=== PATIENT | male | born 1985 | race Caucasian/White ===

== ENCOUNTER 2020-09-06 11:15 | Outpatient (NON) | payer OTHER, SELFPAY ==
[2020-09-06 22:15] LABS: SARS-CoV-2 RNA PCR Positive
== END 2020-09-06 11:16 ==
PROVIDERS: Physician Assistant; PCP Family Medicine; Visit Provider Family Medicine
DX: U07.1 COVID-19 (principal)
CPT/HCPCS: 87635; C9803; U0003

== ENCOUNTER → 2021-03-07 17:50 | Outpatient (CLI) | payer OTHER, SELFPAY ==
--- NOTE | ~2021-03-07 | XR_ITS ---
EXAMINATION: XR chest 2V 03/07/2021 18:21 INDICATION: Cough PROCEDURE: 2 view chest COMPARISON: No prior studies for comparison. FINDINGS: The lungs are clear. The cardiomediastinal silhouette is within normal limits. There are no pleural effusions. There is no pneumothorax suspected. IMPRESSION: 1: NO ACUTE CARDIOPULMONARY DISEASE. Reviewed, dictated and finalized at location A.
== END ==
PROVIDERS: PCP Family Medicine; Visit Provider Physician Assistant
DX: R05 Cough (principal)
CPT/HCPCS: 71046

== ENCOUNTER 2021-10-20 13:26 | Emergency (ER) | payer OTHER, SELFPAY ==
[2021-10-20 13:45] VITALS: BP 134/87; PULSE 84; RESP 16; TEMP 37.2; O2SAT 99
--- NOTE | 2021-10-20 14:42 | PC.NURSE ---
pt decides to leave and have finger treated at urgent care
== END 2021-10-21 02:23 | disposition left against medical advice (07) ==
PROVIDERS: PCP Family Medicine
DX: Z53.21 Procedure and treatment not carried out due to patient leaving prior to being seen by health care provider (principal)
CPT/HCPCS: 99199

== ENCOUNTER 2021-10-20 14:54 | Emergency (ER) | payer OTHER, SELFPAY ==
[2021-10-20 15:09] VITALS: BP 145/94; PULSE 81; RESP 18; TEMP 36.2; O2SAT 99
--- NOTE | 2021-10-20 15:14 | ED.WOUNDLAC ---
HPI - Wound/Laceration General Chief Complaint: Wound/Laceration Stated Complaint: Cut Middle Finger Rt hand Source: patient and RN notes reviewed Limitations: no limitations History of Present Illness HPI narrative: The patient, previously mostly healthy, presents with wound check. Patient states prior to arrival he sustained a small avulsion/superficial laceration of his right long finger while working on a sink. Symptoms are mild, better with compression, and he wants to be checked for tetanus or need for sutures. Related Data Allergies Allergy/AdvReac Type Severity Reaction Status Date / Time No Known Allergies Allergy Verified 10/20/21 15:02 Review of Systems Review of Systems: General/Constitutional: No weight loss,fever Eyes: N0: Redness,discharge Ears/Nose/Throat: No: Epistaxis,ear discharge Respiratory: Denies: Hemoptysis Gastrointestinal: No Vomiting, Bleeding-rectal Skin: No Lumps, eruption Neurologic: No Focal Weakness,Sz Hematologic: Denies: Petechiae/Purpura Psychiatric: No: Suicida ideationl All Other Systems: Reviewed and Negative [facility] Past Medical History Medical History (Updated 10/20/21 @ 15:29 by Cody Billingsley MD) Family history of ulcerative colitis Hyperlipidemia Obesity Family History Family History Sibling Family history of ulcerative colitis Social History Social History (Updated 09/19/21 @ 13:10 by Ángela Webb) Smoking status: Never smoker Second hand tobacco smoke exposure: No Alcohol intake: current Substance use: never Substance use type: does not use Gender identity (if verbalized by the patient): Male Sexual Orientation (if Verbalized by the Patient): Straight or Heterosexual Comments At time of signature, agree with nursing past medical, surgical, social and family history. There is no relevant family history pertinent to the presenting complaint Exam Narrative: General Appearance: Well appearing, Conjunctiva clear Ears: External ear normal, Auditory canal normal Nose: Normal nose, Nares clear Mouth/Throat: Normal appearing, Normal lips,: Supple Respiratory: Airway patent, No respiratory distress MS-finger: Normal strength (mostly intact, unlimited flexion/extension ), Tenderness and evolution, with mild decreased ROM), no swelling, Other (no anterior drawer, no collateral laxity,) Skin: 1 cm long, very narrow skin avulsion; warm, Dry, Normal color Neurological: A&O x3, Normal affect Course Vital Signs Vital signs: Vital Signs Temperature 97.1 F L 10/20/21 15:09 Pulse Rate 81 10/20/21 15:09 Respiratory Rate 18 10/20/21 15:09 Blood Pressure 145/94 H 10/20/21 15:09 Pulse Oximetry 99 10/20/21 15:09 Temperature 97.1 F L 10/20/21 15:09 Pulse Rate 81 10/20/21 15:09 Respiratory Rate 18 10/20/21 15:09 Blood Pressure 145/94 H 10/20/21 15:09 Pulse Oximetry 99 10/20/21 15:09 Discharge Plan Discharge Clinical Impression: Encounter for post-traumatic wound check, Hx of avulsion Patient Disposition: Home, Self-Care Condition: Stable Instructions: Skin Avulsion (ED) Prescriptions: New mupirocin 2 % ointment 1 applic TOPICAL TID Qty: 30 RF: 0 albuterol sulfate [Ventolin HFA] 90 mcg/actuation HFA aerosol inhaler 2 puff INHALATION QID PRN (Reason: shortness of breath or wheezing) Qty: 8.5 RF: 1 Follow-up/Referrals: Naif Bangura MD [Primary Care Provider] -
[2021-10-20] MEDS: TETANUS,DIPHTHERIA,AC PERTUSSIS ADULT (0.5 ML) BOOSTRIX IM (15:23)
== END 2021-10-20 15:32 | disposition home or self-care (01) ==
PROVIDERS: Emergency Provider Emergency Medicine; PCP Family Medicine
DX: S61.212A Laceration without foreign body of right middle finger without damage to nail, initial encounter (principal); E78.5 Hyperlipidemia, unspecified; Z23 Encounter for immunization; W45.8XXA Other foreign body or object entering through skin, initial encounter
CPT/HCPCS: 90471; 90715; 99212; G0463

== ENCOUNTER 2023-03-13 16:07 | Outpatient (CLI) | payer OTHER, SELFPAY ==
--- NOTE | ~2023-03-13 | XR_ITS ---
EXAM: XR lumbar spine 2-3V DATE: 03/13/2023 16:27 HISTORY: M54.50 - Low back pain, unspecified, HEARD A POP TODAY . COMPARISON: None available. FINDINGS: 5 nonrib-bearing lumbar-type vertebral bodies. Pedicles intact. Normal vertebral body alig nment. Vertebral body heights preserved. Mild L5-S1 disc space narrowing. Mild L5-S1 facet sclerosis and hypertrophy. No fracture or dislocation. Incidental note of moderate degenerative disc change at T11-12. IMPRESSION: Mild degenerative disc disease and facet arthropathy at L5-S1. Reviewed, dictated and finalized at location K.
== END 2023-03-13 16:08 | disposition home or self-care (01) ==
PROVIDERS: PCP Family Medicine; Visit Provider Physician Assistant
DX: M51.36 Other intervertebral disc degeneration, lumbar region (principal); M47.817 Spondylosis without myelopathy or radiculopathy, lumbosacral region; G89.29 Other chronic pain
CPT/HCPCS: 72100

== ENCOUNTER 2023-07-11 16:50 | Outpatient (CLI) | payer OTHER, SELFPAY ==
--- NOTE | ~2023-07-11 | XR_ITS ---
EXAMINATION: XR chest 2V DATE: 07/11/2023 17:02 INDICATION: Shortness of breath and cough TECHNIQUE: PA and lateral views of the chest were obtained. COMPARISON: Chest radiograph dated 03/07/2021 FINDINGS: The lungs are clear with no focal airspace opacities, pulmonary edema, pleural effusion or pneumothor ax. The cardiomediastinal silhouette is normal. Mild thoracic spondylosis. IMPRESSION: 1. No acute cardiopulmonary disease. Reviewed, dictated and finalized at location A.
== END 2023-07-11 16:51 | disposition home or self-care (01) ==
LOC: ANHIMG 16:52
PROVIDERS: PCP Family Medicine; Visit Provider Family Medicine
DX: R05.9 Cough, unspecified (principal)
CPT/HCPCS: 71046

== ENCOUNTER 2023-07-16 15:11 | Emergency (ER) | payer OTHER, SELFPAY ==
[2023-07-16 15:23] VITALS: BP 125/89; PULSE 86; RESP 16; TEMP 36.4; O2SAT 100
--- NOTE | 2023-07-16 15:56 | ED.EAR ---
HPI - Ear Problem General Chief complaint: Ear Stated complaint: rt ear pain Source: patient and RN notes reviewed History of Present Illness HPI Narrative: 37 yo M presents to urgent care with complaints of worsening right sided ear pain. Pt states one week ago, he was dx with FLU B and conjuntivitis. , he had a CXR b/c of his non-improved cough, which was negative. Pt states his eye has gotten better with the drops. Saturday he was seen in urgent care for right sided ear pain and sore throat where he was dx with strep throat. Pt has been taking amoxicillin but states the ear pain is getting worse and he his having drainage from it. Pt reports intermittent dizziness now as well. Denies any fevers, chills, SOB, chest pain today, vomiting, diarrhea, or tinnitus. Related Data Home Medications Medication Instructions Recorded Confirmed amoxicillin 500 mg capsule 500 mg PO BID 07/16/23 07/16/23 benzonatate 200 mg capsule 200 mg PO PRN PRN Cough 07/16/23 07/16/23 Allergies Allergy/AdvReac Type Severity Reaction Status Date / Time No Known Allergies Allergy Verified 07/16/23 15:19 Review of Systems Review of Systems: Pertinent positives and pertinent negatives per HPI. [facility] Past Medical History Medical History Family history of ulcerative colitis Hyperlipidemia Obesity Family History Family History Sibling Family history of ulcerative colitis Social History Social History Smoking status: Never smoker Second hand tobacco smoke exposure: No Alcohol intake: current Substance use: never Substance use type: does not use Living arrangements: with family Occupation/Education: occupation Gender identity (if verbalized by the patient): Male Sexual Orientation (if Verbalized by the Patient): Straight or Heterosexual Comments At the time of my signature, I reviewed and agree with the nursing past medical, surgical, social, and family history. There is no relevant family history pertinent to the patient complaint. Exam Narrative: GENERAL: This is a well-nourished, well-developed patient, in no apparent distress. HEAD: normocephalic, atraumatic. EYES: Sclera clear/white. Vision is grossly intact. EARS: Right ear canal is edematous and erythemic. Yellow /brown drainage noted to be coming from the right ear. Unable to visualize right TM. Left outer ear, canal, and inner ear appear healthy. NOSE: External nose normal with no obvious nasal discharge, nares without redness, no rhinorrhea. THROAT: Mucous membranes moist, posterior pharynx clear. NECK: Neck supple, non-tender without lymphadenopathy, masses or thyromegaly. CARDIOVASCULAR: Regular rate and rhythm without murmurs, gallops, or rubs. RESPIRATORY: Clear to auscultation. Breath sounds equal bilaterally. No wheezes, rales, or rhonchi. GASTROINTESTINAL: Abdomen soft, non-tender, nondistended. Bowel sounds are active. No hepato-splenomegaly, or palpable masses. No guarding. SKIN: warm, intact with no suspicious lesions or rash, good texture and turgor. NEURO: awake, alert, and oriented to person, place and time. There were no obvious focal neurologic abnormalities. Course Course Level of Care: Express Care Visit Vital Signs Vital signs: Vital Signs Temperature 97.5 F L 07/16/23 15:23 Pulse Rate 86 07/16/23 15:23 Respiratory Rate 16 07/16/23 15:23 Blood Pressure 125/89 07/16/23 15:23 Pulse Oximetry 100 07/16/23 15:23 Oxygen Delivery Room Air 07/16/23 15:23 Temperature 97.5 F L 07/16/23 15:23 Pulse Rate 86 07/16/23 15:23 Respiratory Rate 16 07/16/23 15:23 Blood Pressure 125/89 07/16/23 15:23 Pulse Oximetry 100 07/16/23 15:23 Oxygen Delivery Room Air 07/16/23 15:23 reviewed Medical Decision Making EMIR Kc
== END 2023-07-16 16:12 | disposition home or self-care (01) ==
PROVIDERS: Emergency Provider Nurse Practitioner Family; PCP Family Medicine
DX: H60.91 Unspecified otitis externa, right ear (principal); E78.5 Hyperlipidemia, unspecified; E66.9 Obesity, unspecified; Z68.36 Body mass index [BMI] 36.0-36.9, adult
CPT/HCPCS: 99213; G0463

== ENCOUNTER 2023-11-21 11:43 | Emergency (ER) | payer OTHER, SELFPAY ==
[2023-11-21 11:50] VITALS: BP 124/80; PULSE 75; RESP 18; TEMP 36.1; O2SAT 98
--- NOTE | 2023-11-21 11:51 | ED.URI ---
HPI - URI/Sore Throat General Chief Complaint: Upper Respiratory Infection Stated Complaint: Sore Throat, Exposure To Strep,Congestion, Earache Time Seen by Provider: 11/21/23 12:05 Source: patient and RN notes reviewed Mode of arrival: ambulatory Limitations: no limitations History of Present Illness HPI Narrative: 38-year-old male presents with concern for sore throat. He reports symptoms started today with ear pain, sore throat. Reports his tested positive for strep throat today. He reports 4/10 pain level in his throat. MD elicited complaint: sore throat Related Data Allergies Allergy/AdvReac Type Severity Reaction Status Date / Time No Known Allergies Allergy Verified 11/21/23 11:59 Review of Systems Review of Systems: CONSTITUTIONAL: Denies malaise, chills, sweats, or fever. EYES: Denies visual changes, redness, or discharge. ENT: Denies rhinorrhea, congestion, sinus pain. Reports otalgia and sore throat. CARDIOVASCULAR: Denies chest pain, palpitations, or edema. RESPIRATORY: Denies cough. Denies dyspnea. GASTROINTESTINAL: Denies abdominal pain, nausea, vomiting, diarrhea SKIN: Denies rash or itching. MUSCULOSKELETAL: Denies myalgia. NEUROLOGIC: Reports headache. All systems reviewed & are unremarkable except as noted in HPI and below PMFSH Past Medical History Medical History Family history of ulcerative colitis Hyperlipidemia Obesity Family History Family History Sibling Family history of ulcerative colitis Social History Social History Smoking status: Never smoker Second hand tobacco smoke exposure: No Alcohol intake: current Substance use: never Substance use type: does not use Living arrangements: with family Occupation/Education: occupation Gender identity (if verbalized by the patient): Male Sexual Orientation (if Verbalized by the Patient): Straight or Heterosexual Comments At time of signature, agree with nursing past medical, surgical, social and family history. There is no relevant family history pertinent to the presenting complaint Exam Narrative: GENERAL: Well-appearing, well-nourished, and in no acute distress. HEAD: Normocephalic EYES: PERRLA, conjunctivae clear ENT: Nares clear Mucous membranes moist. TM pearly lynn with dull light reflex bilaterally; no tragal tenderness. Oropharynx erythematous without lesions. Tonsils not enlarged and without exudate, no drooling, no hoarseness, no trismus, uvula midline. NECK: Supple. No lymphadenopathy CHEST: Clear to auscultation, breath sounds equal. No wheezing, rhonchi, rales, or stridor. No respiratory distress, speaks in full sentences. HEART: Regular rate and rhythm. No murmur heard. SKIN: Warm, dry, no rash. NEURO: Alert and oriented x3. PSYCH: Normal mood and affect Course Course Emergency Course: Patient is aware of diagnosis, understands and agrees to treatment plan. Anticipatory guidance given. Patient agrees to follow-up as directed and is aware of reasons to seek care at the emergency department. Portions of this record may have been created with voice recognition software Level of Care: Express Care Visit Vital Signs Vital signs: Reviewed. MDM - URI/Sore Throat MDM Narrative Medical decision making narrative: Differential diagnosis considered: Bell virus, strep pharyngitis, allergic rhinitis, upper respiratory tract infection, sinusitis, rhinosinusitis, nasopharyngitis. viral pharyngitis, otitis media, otitis externa, pneumonia, bronchitis, viral cough syndrome, viral syndrome, and influenza. Exam findings show no acute concerns or changes; patient is non-toxic appearing and is in no distress. Patient is appropriate for outpatient treatment and follow-up. Lab Data Attestation: I reviewed the patient's lab results.
== END 2023-11-21 12:26 | disposition home or self-care (01) ==
PROVIDERS: Emergency Provider Nurse Practitioner; PCP Family Medicine
DX: J02.9 Acute pharyngitis, unspecified (principal); Z20.818 Contact with and (suspected) exposure to other bacterial communicable diseases; E78.5 Hyperlipidemia, unspecified; E66.9 Obesity, unspecified; Z68.38 Body mass index [BMI] 38.0-38.9, adult
CPT/HCPCS: 87081; 87880; 99213; G0463

== ENCOUNTER 2024-08-06 11:03 | Outpatient (CLI) | payer OTHER, SELFPAY ==
--- NOTE | ~2024-08-06 | US_ITS ---
EXAMINATION: US renal BI DATE: 08/06/2024 11:49 INDICATION: Disorder of kidney and ureter. Right renal lesion on outside CT. TECHNIQUE: Multiple ultrasound grayscale images of the kidneys were obtained. COMPARISON: None. Reported outside imaging has not been submitted for comparison. FINDINGS: The right kidney measures 12.2 x 6.5 x 6.5 cm. The left kidney measures 12.2 x 6.6 x 6.7 cm. The kidn eys demonstrate normal echogenicity. 1.2 cm exophytic cyst at the inferior right kidney. There is no hydronephrosis in either kidney. No stones identified. The bladder is normal with bilateral ureteral jets visualized on color Doppler. IMPRESSION: 1. 1.2 cm anechoic hepatic cyst at the right kidney. Otherwise normal kidneys with no hydronephrosis . Reviewed, dictated and finalized at location B. IMPRESSION: 1. 1.2 cm anechoic hepatic cyst at the right kidney. Otherwise normal kidneys with no hydronephrosis.
== END 2024-08-06 11:04 | disposition home or self-care (01) ==
PROVIDERS: PCP Family Medicine; Visit Provider Family Medicine
DX: N28.9 Disorder of kidney and ureter, unspecified (principal); N28.1 Cyst of kidney, acquired
CPT/HCPCS: 76775

== ENCOUNTER 2024-09-08 08:06 | Outpatient (CLI) | payer OTHER, SELFPAY ==
--- NOTE | ~2024-09-08 | US_ITS ---
US abdomen limited INDICATION: Right upper quadrant pain PROCEDURE: Realtime right upper abdominal ultrasound. COMPARISON: No prior studies for comparison. FINDINGS: The pancreas is normal without focal mass or pancreatic ductal dilation. Liver echotexture is increased, consistent with fatty infiltration. There is normal directional flow in the portal ve in. The gallbladder is normal without stones, gallbladder wall thickening or pericholecystic fluid. Comm on bile duct measures 4 mm. No sonographic De Los Santos's sign. IMPRESSION: 1: Fatty infiltration of the liver. Reviewed, dictated and finalized at location B.
== END 2024-09-08 08:07 | disposition home or self-care (01) ==
PROVIDERS: PCP Family Medicine; Visit Provider Physician Assistant Medical
DX: K76.0 Fatty (change of) liver, not elsewhere classified (principal)
CPT/HCPCS: 76705

== ENCOUNTER 2024-10-21 01:33 | Day surgery (SDC) | payer OTHER, SELFPAY ==
[2024-10-02 12:59] VITALS: BMI 40.0
[2024-10-21 08:29] VITALS: BP 125/82; PULSE 95; RESP 14; TEMP 36.1; O2SAT 98; BMI 39.5
[2024-10-21] MEDS: LACTATED RINGERS 1,000 ML 150 ML IV CONT (08:39)
--- NOTE | 2024-10-21 09:04 | PM.IMHP ---
H&P: HPI History of Present Illness Date/Time: 10/21/24 09:04 Chief Complaint: The patient has been complaining of frequent diarrhea, at least 75% of the times for the past year approximately. There is no associated rectal bleeding or unintentional weight loss but he reports having frequent, ill-defined diffuse abdominal discomfort not related to defecation. He is currently being studied for chronic diarrhea and laboratory tests are pending. In addition, patient describes epigastric discomfort that has been occurring for the past few months. He is here for EGD and colonoscopy. Review of Systems Review of Systems: All systems reviewed & are unremarkable except as noted in HPI and below PMFSH Past Medical History Medical History Family history of ulcerative colitis Hyperlipidemia Obesity Family History Family History Sibling Family history of ulcerative colitis Social History Social History Social History: Smoking status: Former smoker Tobacco type: smokeless tobacco Smokeless tobacco user: chewing tobacco Second hand tobacco smoke exposure: No Alcohol intake: former Drinks per week: 1 Substance use: never Substance use type: does not use Do You Feel Safe in your Home?: Yes Lack of Transportation: No Lack of Food: Never True Current Housing: I Have Housing Concerned About Future Housing: No Difficulty Paying Gas/Electric Bills: No Difficulty Paying for Meds: No Currently Unemployed: No Education: Don't Know Difficulty w/ Childcare or Family Care: No Living arrangements: with family Occupation/Education: occupation Additional occupation/education comments: [employer] Gender identity (if verbalized by the patient): Male Sexual Orientation (if Verbalized by the Patient): Straight or Heterosexual Spiritual care concerns: No Meds Home Medications and Allergies Home Medications Medication Instructions Recorded Confirmed Type No Home Medications 10/05/24 10/21/24 History Allergies Allergy/AdvReac Type Severity Reaction Status Date / Time No Known Allergies Allergy Verified 10/21/24 08:28 Vital Signs Vital Signs - 24 hr 10/21/24 08:29 Temperature 97 F L Pulse Rate 95 Respiratory Rate 14 Blood Pressure 125/82 Pulse Oximetry 98 Oxygen Delivery Room Air Exam Const: General: cooperative and healthy appearing Resp: Effort & Inspection: normal respiratory effort and able to speak in complete sentences Auscultation: clear to auscultation bilaterally Cardio: Rate: regular rate Rhythm: regular rhythm GI: Inspection: normal to inspection GI Palp: No No hepatosplenomegaly present Auscultation: normal bowel sounds Rectal Exam: deferred Skin: General skin exam: normal color Psych: Appearance: grossly normal Mental Status: mental status grossly normal Assessment and Plan Assessment and plan (1) Family history of ulcerative colitis: Code(s): Z83.79 - Family history of other diseases of the digestive system Status: Acute Assessment and Plan: The patient has a family history of ulcerative colitis in both his mother and sister. He had a colonoscopy approximately 5 years ago which did not show inflammatory bowel disease. However, we will perform a colonoscopy and will take biopsies to rule out microscopic colitis. In addition, during EGD will obtain duodenal biopsies to rule out celiac disease. (2) Chronic diarrhea: Code(s): K52.9 - Noninfective gastroenteritis and colitis, unspecified Status: Acute (3) Right upper quadrant abdominal pain: Code(s): R10.11 - Right upper quadrant pain Status: Acute
--- NOTE | 2024-10-21 09:06 | WPDANESEPPF ---
Anes - Initial Pre Proc Eval Procedure: Operation Date: 10/21/24 09:30 Proposed Procedures p Esophagogastroduodenoscopy & Colonoscopy - Judah Shore MD Date/Time: 10/21/24 09:06 Surgeon: Judah Shore MD Pre Op Diagnosis: Colitis/ RUQP & RLQP Patient Data Age: 39 Gender: M Height: 1.83 m Weight: 132.3 kg Last Vital Signs Temp 36.1 C L 10/21/24 08:29 Pulse 95 10/21/24 08:29 Resp 14 10/21/24 08:29 BP 125/82 10/21/24 08:29 Pulse Ox 98 10/21/24 08:29 O2 Del Method Room Air 10/21/24 08:29 Allergies Allergy/AdvReac Type Severity Reaction Status Date / Time No Known Allergies Allergy Verified 10/21/24 08:28 Home Medications Medication Instructions Recorded Confirmed Type No Home Medications 10/05/24 10/21/24 History Patient hx anesthesia problems: none Family hx anesthesia problems: none Results Review: All pre-operative results and documents have been reviewed as part of the pre-operative evaluation. [facility] Past Medical History Medical History Family history of ulcerative colitis Hyperlipidemia Obesity Family History Family History Sibling Family history of ulcerative colitis Social History Social History Social History: Smoking status: Former smoker Tobacco type: smokeless tobacco Smokeless tobacco user: chewing tobacco Second hand tobacco smoke exposure: No Alcohol intake: former Drinks per week: 1 Substance use: never Substance use type: does not use Do You Feel Safe in your Home?: Yes Lack of Transportation: No Lack of Food: Never True Current Housing: I Have Housing Concerned About Future Housing: No Difficulty Paying Gas/Electric Bills: No Difficulty Paying for Meds: No Currently Unemployed: No Education: Don't Know Difficulty w/ Childcare or Family Care: No Living arrangements: with family Occupation/Education: occupation Additional occupation/education comments: [employer] Gender identity (if verbalized by the patient): Male Sexual Orientation (if Verbalized by the Patient): Straight or Heterosexual Spiritual care concerns: No Anes - Eval Final PreProcedure Day of Procedure 10/21/24 09:06 Patient weight: morbidly obese Heart: regular rate and rhythm Lungs: clear to auscultation Airway: Mallampati scale class II Neurological: alert and oriented Last oral intake: >/= 8 hours ASA classification: III Emergent: no Anesthetic plan: proceed Anesthesia type and monitoring: general GIVS and standard monitoring Results Review: All pre-operative results and documents have been reviewed as part of the pre-operative evaluation. Informed Consent: The patient's anesthetic plan and its attendant risks and benefits were discussed with the patient/family/POA. Questions were solicited and answers provided to the satisfaction of the patient/family/POA.
--- NOTE | 2024-10-21 09:11 | SUR.OPER ---
EGD: [id number] COLON: [id number]
[2024-10-21] MEDS: SIMETHICONE ORAL SUSPENSION 20 MG/0.3 ML 30 ML BOTTLE 0.6 ML IRRIGATION (09:15)
[2024-10-21 09:58] VITALS: BP 101/70; PULSE 82; RESP 18; O2SAT 95
[2024-10-21 10:06] VITALS: BP 100/69; PULSE 75; RESP 18; O2SAT 96
[2024-10-21 10:16] VITALS: BP 120/68; PULSE 72; RESP 17; O2SAT 97
== END 2024-10-21 10:30 | disposition home or self-care (01) ==
PROVIDERS: PCP Family Medicine; Referring Provider Nurse Practitioner; Visit Provider Internal Medicine Gastroenterology
PROC: 0DJ08ZZ Inspection of Upper Intestinal Tract, Via Natural or Artificial Opening Endoscopic (ICD-10-PCS; CPT 43235; principal; 2024-10-21 09:30)
DX: K29.80 Duodenitis without bleeding (principal); K29.30 Chronic superficial gastritis without bleeding; K21.9 Gastro-esophageal reflux disease without esophagitis; E78.5 Hyperlipidemia, unspecified; F17.220 Nicotine dependence, chewing tobacco, uncomplicated; E66.01 Morbid (severe) obesity due to excess calories; Z68.39 Body mass index [BMI] 39.0-39.9, adult; Z83.79 Family history of other diseases of the digestive system
CPT/HCPCS: 43239; 45380; 88305; J2003; J2704; J7120

== ENCOUNTER 2024-11-12 17:21 | Emergency (ER) | payer OTHER, SELFPAY ==
[2024-11-12 17:30] VITALS: BP 128/68; PULSE 78; RESP 18; TEMP 36.3; O2SAT 96
--- NOTE | 2024-11-12 17:54 | ED_ITS ---
HPI - URI/Sore Throat General Chief Complaint: Upper Respiratory Infection Stated Complaint: sore throat Source: patient, RN notes reviewed and old records reviewed Mode of arrival: ambulatory Limitations: no limitations History of Present Illness HPI Narrative: patient presents with complaints of sore throat that has been present since yesterday. He is concerned because his and son have both recently tested positive for strep. He has taken ibuprofen for his symptoms with good relief. He reports slight headache. Denies any fever, chills, sweats. Denies any injury or trauma. Voices no other concerns or complaints Related Data Home Medications ?Medication ?Instructions ?Recorded ?Confirmed ?Last Taken ?Type No Home Medications 10/05/24 10/21/24 Unknown History Allergies Allergy/AdvReac Type Severity Reaction Status Date / Time No Known Allergies Allergy Verified 11/12/24 17:32 Review of Systems Review of Systems: All systems reviewed & are unremarkable except as noted in HPI and below Constitutional: Constitutional: Reports no additional constitutional complaints ENT: Reports system reviewed and no additional complaints, except as documented, Reports headache(s) and Reports sore throat Cardiovascular: Cardiovascular: Reports no additional cardiovascular complaints Respiratory: Respiratory: Reports no additional respiratory complaints Gastrointestinal: Gastrointestinal: Reports no additional gastrointestinal complaints [facility] Past Medical History Medical History Family history of ulcerative colitis Hyperlipidemia Obesity Family History Family History Sibling Family history of ulcerative colitis Social History Social History Social History: Smoking status: Former smoker Tobacco type: smokeless tobacco Smokeless tobacco user: chewing tobacco Second hand tobacco smoke exposure: No Alcohol intake: former Drinks per week: 1 Substance use: never Substance use type: does not use Do You Feel Safe in your Home?: Yes Lack of Transportation: No Lack of Food: Never True Current Housing: I Have Housing Concerned About Future Housing: No Difficulty Paying Gas/Electric Bills: No Difficulty Paying for Meds: No Currently Unemployed: No Education: Don't Know Difficulty w/ Childcare or Family Care: No Living arrangements: with family Occupation/Education: occupation Additional occupation/education comments: Agency [employer] Gender identity (if verbalized by the patient): Male Sexual Orientation (if Verbalized by the Patient): Straight or Heterosexual Spiritual care concerns: No Comments At the time of my signature, I reviewed and agree with the nursing past medical, surgical, social, and family history. There is no relevant family history pertinent to the patient complaint. Exam Const: General: cooperative, no acute distress, alert and awake Orientation/consciousness: oriented to person, oriented to place and oriented to time HENMT: Head: normal to inspection Ears: TM's normal bilaterally Mouth: Yes moist mucous membranes Throat: posterior oropharynx abnormal erythema Resp: Effort & Inspection: normal respiratory effort and able to speak in complete sentences Auscultation: clear to auscultation bilaterally, no crackles, no rales, no rhonchi and no wheezes Cardio: Palpation: normal PMI Rate: regular rate Rhythm: regular rhythm Heart sounds: S1 normal heart sound present and S2 normal heart sound present Neuro: General: oriented to person, oriented to place and oriented to time Cranial nerves: Yes CN's II-XII intact bilaterally Psych: Appearance: grossly normal Thought process: Normal thought process present Insight: Good insight present (Psych) Judgement: Good judgement present (Psych) Course Course Level of Care: Express Care Visit Vital Signs Vital signs: Vital Signs Temperature 97.3 F L 11/12/24 17:30 Pulse Rate 78 11/12/24 17:30 Respiratory Rate 18 11/12/24 17:30 Blood Pressure 128/68 11/12/24 17:30 Pulse Oximetry 96 11/12/24 17:30 Oxygen Delivery Room Air 11/12/24 17:30 Temperature 97.3 F L 11/12/24 17:30 Pulse Rate 78 11/12/24 17:30 Respiratory Rate 18 11/12/24 17:30 Blood Pressure 128/68 11/12/24 17:30 Pulse Oximetry 96 11/12/24 17:30 Oxygen Delivery Room Air 11/12/24 17:30 Reviewed MDM - URI/Sore Throat MDM Narrative Medical decision making narrative: negative COVID, negative flu, negative strep. Culture pending. Symptoms likely viral in origin. Treat symptomatically. Discharge instructions reviewed with patient, as well as provided in writing per nursing staff. The instructions also include specific and strict return/GO TO THE ER as well as f/u information. All questions have been answered, and the patient deny any further questions with discharge and discharge plan. Some parts of this dictation were generated by voice recognition software and may contain typographical and/or grammatical inaccuracies. Differential Diagnosis Differential diagnosis: Likely upper respiratory infection, otitis media, sinusitis, viral infection, bronchitis, influenza and pharyngitis Medical Records Attestation: I reviewed the patient's medical records. Lab Data Attestation: I reviewed the patient's lab results. Discharge Plan Discharge Clinical Impression: Viral illness Patient Disposition: Home, Self-Care Condition: Stable Instructions: Antibiotic Form, Cold Symptoms (ED) Additional Instructions: use [id number] medications to treat your symptoms. Follow package instructions. Follow-up with your primary care provider. Emergency department for new or worse symptoms Patient Language: Samoan Prescriptions: No Action No Home Medications Follow-up/Referrals: Naif Bangura MD [Primary Care Provider] - 2 Weeks Time of Disposition: 17:58
[2024-11-12 17:58] LABS: EDCOVIDSCREEN Negative (Negative); EDINFLUASCREEN Negative (Negative); EDINFLUBSCREEN Negative (Negative); EDSTREPNEGPOS1 Negative (Negative)
== END 2024-11-12 18:01 | disposition home or self-care (01) ==
PROVIDERS: Emergency Provider Nurse Practitioner Family; PCP Family Medicine
DX: B34.9 Viral infection, unspecified (principal); E78.5 Hyperlipidemia, unspecified; Z87.891 Personal history of nicotine dependence; E66.9 Obesity, unspecified; Z68.41 Body mass index [BMI] 40.0-44.9, adult; Z20.822 Contact with and (suspected) exposure to COVID-19
CPT/HCPCS: 87081; 87426; 87804; 87880; 99213; G0463

== ENCOUNTER 2025-02-02 07:52 | Outpatient (CLI) | payer OTHER, SELFPAY ==
--- OUTSIDE RECORDS SUMMARY | 2025-02-02 08:00 | XMS_ITS | Referral Summary ---
Author Organization [facility] Address [address] [place] [address] Care Team Providers Care Coffee Roaster Helper Name Role Phone Naif Bangura MD Primary Care Provider [phone] Source Comments [facility],non-owned Affiliates and Associated Physician Practices is amultiple site organization consisting of ambulatory clinics and hospital sitesin [place] and [place]. This disclosure is being madepursuant to the Care Everywhere program and may not contain all information available regarding this patient. Last updated 18.[facility] Encounters Date Type Department Care Team Description 11/20/2024 Travel 11/20/2024 8:30 AM ULTRASOUND SUPERVISOR Procedure visit [facility] - [address] [place] [address] Alfredito Reynoso i, MD Fatty liver from Last 3 Months Social History Tobacco Use Types Packs/Day Years Used Date Smoking Tobacco: Never Assessed Sex and Gender Information Value Date Recorded Sex Assigned at Not on file Gender Identity Not on file Sexual Orientation Not on file Plan of Treatment Not on file Procedures Procedure Name Priority Date/Time Associated Diagnosis Comments ID LIVER ELASTOGRAPHY Routine 11/20/2024 8:20 AM ULTRASOUND SUPERVISOR Fatty liver from Last 3 Months Results * ID LIVER ELASTOGRAPHY (11/20/2024 8:20 AM ULTRASOUND SUPERVISOR) Narrative Alfredito Hernandez MD - 11/20/2024 8:20 AM ULTRASOUND SUPERVISOR Alfredito Hernandez MD 11/20/2024 4:03 PM Diagnosis: Fatty liver RN verified patient is NPO for prior 3 hours. Procedure explained. Date of Exam: 11/20/2024 Liver Stiffness: (LSM, kPa) median: 4.4 IQR/Median% (ideally < 30%): 7% CAP (controlled attenuation parameter): 270 Technical Difficulty: None Ordering Provider: [facility] Fibroscan interpretation: I have personally reviewed the Fibroscan report and associated tracings. The calculated Liver Stiffness Measurement (LSM, kPa) indicates that: The probability of advanced liver fibrosis is: low. The loss of ultrasound signal, (controlled attenuation parameter, CAP [dB/m]), indicates that the probability of hepatic steatosis is: moderate. Alfredito Aviles MD The following criteria are used to indicate the probability of advanced (stage 3-4) fibrosis: < 7.0 kPa: low 7.0-8.9 kPa: low to moderate 9.0-14.9 kPa: moderate 15-20 kPa: high > 20 kPa: very high Liver stiffness > 20 kPa is also associated with a high probability of complications of portal hypertension including varices and ascites. Liver stiffness > 50 kPa is associated with a high risk of variceal bleeding. These interpretations are based on the following published data: Yusef PJ, Nighat M, Dana M, et al. Accuracy of FibroScan controlled attenuation parameter and liver stiffness measurement in assessing steatosis and fibrosis in patients with nonalcoholic fatty liver disease. Gastroenterology 2019;156:3982-5928. Cheryl ZUNIGA, Angelita R, Fernando TREJO, et al. Vibration-controlled transient elastography to assess fibrosis and steatosis in patients with nonalcoholic fatty liver disease. Clin Gastroenterol Hepatol 2019;17:156-163. Note that scores have been developed that incorporate the Fibroscan liver stiffness measurement from large cohorts of patients with liver biopsies to further refine the ability of Fibroscan to identify patients with MASH and advanced fibrosis. These include the FAST (Fibroscan-AST) score (Vero, 2021) and the Agile3+ and Agile4 scores (Aicha, 2022). Vero LINDER, Fernando TREJO, Navin Anton, Saad A, et al. Validation of the accuracy of the FAST score for detecting patients with at-risk nonalcoholic steatohepatitis (YATES) in a [place] cohort and comparison to other non-invasive algorithms. PLoS ONE (2021) 17: [id number]. Aicha AJ, Gamal J, Ale ZM, et al. Enhanced diagnosis of advanced fibrosis and cirrhosis in individuals with NAFLD using FibroScan-based Agile scores. J Hepatol (2022) 78: 247-259. Fibroscan LSM can also be used with laboratory parameters without formulas to assess prognosis. According to the Baveno-VII criteria (Ceron, 202), Fibroscan LSM <=15 kPa plus a platelet count of >=514p341/L rules out clinically significant portal hypertension (sensitivity and negative predictive value >90%) in patients with compensated advanced chronic liver disease. Ceron R, Nancy J, Zaid-Benjamin G, Aden T, Darvin Sainz on behalf of the Baveno VII Faculty. Baveno VII--Renewing consensus in portal hypertension. J Hepatol (2021) 76: 959-974 Assessing the likelihood of advanced fibrosis in patients with intermediate liver stiffness measurement (LSM) by Fibroscan (e.g., 8-15 kPa) can be improved by also calculating the FIB-4 score (Nataliee et al. Hepatology Communications 2019;3:5031-2457) or NAFLD Fibrosis score (Cote et al. Clinical Gastroenterology and Hepatology 2019;17:1735-8229 using routine clinical data. Note: 1. Fibroscan cannot reliably identify earlier stages of fibrosis (ie distinguish F0 from F1 and F2) and thus a histologic stage cannot be predicted from the Fibroscan reading. 2. Liver stiffness can be increased by factors other than fibrosis including passive congestion, infiltrative processes, active alcoholism, recent moderate alcohol consumption in the 2 weeks before the exam, biliary obstruction and marked inflammation. The interpretation of the Fibroscan result provided above may not have taken such clinical factors into account. Disease etiology also influences Fibroscan cutoff values for fibrosis stages and the following cutoffs have been proposed (Bradley et al, Clin Gastro Hepatol 2015; 13:27-36): Cutoffs for Stage 3 and Stage 4 fibrosis respectively: Hepatitis B: >9 and >11.7 kPa Hepatitis C: >9.5 and >12.5 kPa HCV-HIV: >11 and >14 kPa Cholestatic liver diseases: >10 and >17.9 kPa MASLD/MASH: >10 and >14 kPa CAP estimates of steatosis: normal <200 dB/m mild 200 to 250 dB/m moderate 250-290 dB/m substantial > 290 dB/m (Note that Fibroscan is not a quantitative measure of liver fat.) These criteria are estimates and may change as additional supporting data becomes available. (This additional interpretive data was last updated 03/23/23.) [email or web address] Alfredito Hernandez MD PROCEDURE/ MINOR SURGICAL ORDERABLES from Last 3 Months Care Teams Coffee Roaster Helper Relationship Specialty Start Date End Date Naif Bangura MD [address] [place] [address] PCP - General 01/27/19
--- OUTSIDE RECORDS SUMMARY | 2025-02-02 08:00 | XMS_ITS | Clinical Summary ---
Author Organization [facility] Address [address] [place] [address] Care Team Providers Care Atm Mechanic Name Role Phone Naif Bangura MD Primary Care Provider [phone] Source Comments [facility],non-owned Affiliates and Associated Physician Practices is amultiple site organization consisting of ambulatory clinics and hospital sitesin [place], [place], [place] and [place]. This disclosure is being madepursuant to the Care Everywhere program and may not contain all information available regarding this patient. Last updated 18.[facility] Encounters Date Type Department Care Team Description 11/20/2024 8:30 AM GAS COMBUSTION ENGINEER Procedure visit [facility] - [address] [address] Alfredito Reynoso i, MD Fatty liver 11/20/2024 Travel from Last 3 Months Social History Tobacco Use Types Packs/Day Years Used Date Smoking Tobacco: Never Assessed Sex and Gender Information Value Date Recorded Sex Assigned at Not on file Gender Identity Not on file Sexual Orientation Not on file Plan of Treatment Health Maintenance Due Date Last Done Comments HIV SCREENING 2000 HEPATITIS C SCREENING 09/30/2003 DTAP/TDAP/TD VACCINES (1 - Tdap) 2004 HEPATITIS B VACCINE (1 of 3 - 19+ 3-dose series) 2004 COVID-19 VACCINE ( - 2023-2 5 season) 2024 INFLUENZA VACCINE (#1) 2024 DEPRESSION SCREENING 11/18/2024 ZOSTER VACCINE (1 of 2) 2035 HIB VACCINE Aged Out No longer eligi ble based on patient's age to complete this topic HPV VACCINE Aged Out No longer eligi ble based on patient's age to complete this topic MENINGOCOCCAL (Group B) VACC INE SHARED DECISION-MAKING Aged Out No longer eligibl e based on patient's age to complete this topic MENINGOCOCCAL GROUPS A/C/Y/W VACCINE Aged Out No longer eligible b ased on patient's age to complete this topic PNEUMOCOCCAL VACCINE Aged Out No long er eligible based on patient's age to complete this topic Procedures Procedure Name Priority Date/Time Associated Diagnosis Comments CA LIVER ELASTOGRAPHY Routine 11/20/2024 8:20 AM GAS COMBUSTION ENGINEER Fatty liver from Last 3 Months Results * CA LIVER ELASTOGRAPHY (11/20/2024 8:20 AM GAS COMBUSTION ENGINEER) Narrative Alfredito Hernandez MD - 11/20/2024 8:20 AM GAS COMBUSTION ENGINEER Alfredito Hernandez MD 11/20/2024 4:03 PM Diagnosis: Fatty liver RN verified patient is NPO for prior 3 hours. Procedure explained. Date of Exam: 11/20/2024 Liver Stiffness: (LSM, kPa) median: 4.4 IQR/Median% (ideally < 30%): 7% CAP (controlled attenuation parameter): 270 Technical Difficulty: None Ordering Provider: JENNIFER Chisholm Fibroscan interpretation: I have personally reviewed the [...] patients with nonalcoholic fatty liver disease. Gastroenterology 2019;156:7248-6972. Cheryl MS, Angelita R, Van Natta ML, et al. Vibration-controlled transient elastography to assess [...] These include the FAST (Fibroscan-AST) score (Vero, 202) and the Agile3+ and Agile4 scores (Aicha, 202). Vero TA, Van Natta ML, Navin Anton, Saad A, et al. Validation of the accuracy of the FAST score for detecting patients with at-risk nonalcoholic steatohepatitis (YATES) in a [place] cohort and comparison to other non-invasive algorithms. PLoS ONE (2021) 17: [id number]. Aicha AJ, Gamal J, Ale ZM, et al. Enhanced diagnosis of advanced fibrosis and cirrhosis in individuals with NAFLD using FibroScan-based Agile scores. J Hepatol (2022) 78: 247-259. Fibroscan LSM can also be used with laboratory parameters without formulas to assess prognosis. According to the Baveno-VII criteria (Ceron, 2021), Fibroscan LSM <=15 kPa plus a platelet count of >=949e300/L rules out clinically significant portal hypertension (sensitivity [...] improved by also calculating the FIB-4 score (Caprice et al. Hepatology Communications 2019;3:7208-3205) or NAFLD Fibrosis score (Cote et al. Clinical Gastroenterology and Hepatology 2019;17:7190-6844 using routine clinical data. Note: 1. Fibroscan [...] additional interpretive data was last updated 03/23/23.) [email or web address] Alfredito Hernandez MD PROCEDURE/ MINOR SURGICAL ORDERABLES from Last 3 Months Care Teams Atm Mechanic Relationship Specialty Start Date End Date Naif Bangura MD [address] [place] [address] PCP - General 01/27/19
--- OUTSIDE RECORDS SUMMARY | 2025-02-02 08:00 | XMS_ITS | Referral Summary ---
Author Organization [facility] al Address [address] [place] [address] Care Team Providers Care Rail Layer Name Role Phone Naif Bangura MD Primary Care Provider Allergies No known active allergies Medications famotidine (PEPCID) 20 mg tabletIndication s:Heartburn,Hear tburn Prevention Take 1 tablet (20 mg total) by mouth daily 30 tablet 07/08/2024 Active Social History Tobacco Use Types Packs/Day Years Used Date Smoking Tobacco: Never Smokeless Tobacco: Never Tobacco Cessation:Counseling Given: Not Answered Alcohol Use Standard Drinks/Week Comments Yes 0 (1 standard drink = 0.6 oz pur e alcohol) socially Personal Safety Answer Date Recorded Getting School Help Needed Not on file 07/08 Sex and Gender Information Value Date Recorded Sex Assigned at Not on file Legal Sex Male 12:30 PM CDT Gender Identity Not on file Sexual Orientation Not on file Last Filed Vital Signs Vital Sign Reading Time Taken Comments Blood Pressure 125/70 07/08/2024 6:02 PM CDT Pulse 77 07/08/2024 6:02 PM CDT Temperature 37 C (98.6 F) 07/08/2024 2:19 PM CDT Respiratory Rate 16 07/08/2024 6:02 PM CDT Oxygen Saturation 99% 07/08/2024 6:02 PM CDT Inhaled Oxygen Concentration - - Weight - - Height - - Body Mass Index - - Plan of Treatment Not on file Insurance [facility]O Address: [place] [address] [facility] [address] Care Teams Rail Layer Relationship Specialty Start Date End Date Naif Bangura MD [address] [facility] [address] [place] [address] PCP - General Family Medicine 07/08/24
--- OUTSIDE RECORDS SUMMARY | 2025-02-02 08:00 | XMS_ITS | Clinical Summary ---
Author Organization [facility] al Address [address] [place] [address] Care Team Providers Care Carbon Paper Interleafer Name Role Phone Naif Bangura MD Primary [...] on file Sexual Orientation Not on file Obstetrics History Last Filed Vital Signs Vital Sign Reading [...] Mass Index - - Plan of Treatment Health Maintenance Due Date Last Done Comments Depression Screening 1985 Hepatitis C Screening 1985 Varicella Vaccines (1 of 2 - 13+ 2-dose series) 1998 Regular Well Visit/Exam 18-64 2003 Influenza Vaccine (#1) 2024 DTaP/Tdap/Td Vaccine (8 - Td or Tdap) 10/20/2031 10/20/2021, 10/19/2018, 05/04/1999, Additional history exists Hepatitis B Screening Completed 06/27/1999 , 02/19/1999, 10/13/1998 HPV Vaccines Aged Out No longer eligi ble based on patient's age to complete this topic Pneumococcal vaccine <65 Aged Out No longer eligible based on patient's age to complete this topic Insurance [facility] Care Teams Carbon Paper Interleafer Relationship Specialty Start Date End Date Naif Bangura MD [address] [address] PCP - General Family Medicine 07/08/24
--- OUTSIDE RECORDS SUMMARY | 2025-02-02 08:00 | XMS_ITS | Patient Health Summary ---
Author Organization [facility] Address [address] [place] [address] Care Team Providers Care Laminator Hand Name Role Phone Naif Bangura MD Primary Care Provider [phone] Note from [facility],non-owned Affiliates and Associated Physician Practices is amultiple site organization consisting of ambulatory clinics and hospital sitesin [place], [place], [place] and [place]. This disclosure is being madepursuant to the Care Everywhere program and may not contain all information available regarding this patient. Last updated 18.[facility] Social History Tobacco Use Types Packs/Day Years Used Date Smoking Tobacco: Never Assessed Sex and Gender Information Value Date Recorded Sex Assigned at Not on file Gender Identity Not on file Sexual Orientation Not on file Procedures * NV LIVER ELASTOGRAPHY(Performed 11/20/2024) Performed for Fatty liver Results * NV LIVER ELASTOGRAPHY (11/20/2024 8:20 AM PLANT MAINTENANCE ENGINEER) Narrative Alfredito Hernandez MD - 11/20/2024 8:20 AM PLANT MAINTENANCE ENGINEER Alfredito Hernandez MD 11/20/2024 4:03 PM Diagnosis: Fatty liver RN verified patient is NPO for prior 3 hours. Procedure explained. Date of Exam: 11/20/2024 Liver Stiffness: (LSM, kPa) median: 4.4 IQR/Median% (ideally < 30%): 7% CAP (controlled attenuation parameter): 270 Technical Difficulty: None Ordering Provider: Emmie Miles, ROLAND-AGRICULTURAL LOAN OFFICER Fibroscan interpretation: I have personally reviewed the [...] patients with nonalcoholic fatty liver disease. Gastroenterology 2019;156:0282-4282. Cheryl MS, Angelita R, Van Natta ML, [...] These include the FAST (Fibroscan-AST) score (Vero, 2022) and the Agile3+ and Agile4 scores (Aicha, 202). Vero TA, Van Natta ML, Navin M, Saad A, et al. Validation of the accuracy of the FAST score for detecting patients with at-risk nonalcoholic steatohepatitis (YATES) in a [place] cohort and comparison to other non-invasive algorithms. PLoS ONE (2021) 17: [id number]. Aicha CRUZ, Gamal J, Ale MALLORY, et al. Enhanced diagnosis of advanced fibrosis and cirrhosis in individuals with NAFLD using FibroScan-based Agile scores. J Hepatol (2022) 78: 247-259. Fibroscan LSM can also be used with laboratory parameters without formulas to assess prognosis. According to the Baveno-VII criteria (Ceron, 202), Fibroscan LSM <=15 kPa plus a platelet count of >=403p447/L rules out clinically significant portal hypertension (sensitivity and negative predictive value >90%) in patients with compensated advanced chronic liver disease. Ceron R, Nancy J, Jennifer G, Aden T, Darvni Sainz on behalf of the Baveno VII Faculty. Baveno VII--Renewing consensus in portal hypertension. J Hepatol (2021) 76: 959-974 Assessing the likelihood of advanced fibrosis in patients with intermediate liver stiffness measurement (LSM) by Fibroscan (e.g., 8-15 kPa) can be improved by also calculating the FIB-4 score (Caprice et al. Hepatology Communications 2019;3:2788-6920) or NAFLD Fibrosis score (Cote et al. Clinical Gastroenterology and Hepatology 2019;17:1078-0373 using routine clinical data. Note: 1. Fibroscan [...] additional interpretive data was last updated 03/23/23.) [email or web address] Alfredito Hernandez MD PROCEDURE/ MINOR SURGICAL ORDERABLES Care Teams Laminator Hand Relationship Specialty Start Date End Date Naif Bangura MD [address] [place] [address] PCP - General 01/27/19
--- NOTE | 2025-02-06 19:58 | WPDHOMESLEEP ---
Sleep Study - Home Unattended Date of Study: 02/02/25 Ordering Provider: EMMETT Irizarry Interpreting Provider: Angela Valle MD Home Sleep Study Type: Watch PAT Height: 1.83 m Weight: 136.078 kg Body Mass Index: 40.6 Neck Circumference (inches): 17.5 [place]: 0 Reason for Sleep Study * 03/02/2021, Home Sleep Test using Snap, AHI 10.4 consistent with mild obstructive sleep apnea Sleep History Fredis bhatia is a 39-year-old man who was diagnosed with mild obstructive sleep apnea in February 2021, struggled with CPAP at 1st with difficult mask fit, drooling, often taking the mask off during the night. 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 He stopped using it for a month then started wearing it again. There is a problem with noncompliance and he was not able to get replacement supplies. Over the last year he has been using an oral appliance purchased off [employer]. He has been using the device 6-7 nights per week occasionally taking a break due to jaw discomfort. The sleep questionnaire with the home sleep test did not show completed answers. His sleep history was taken from his office note 11/13/2024. Normal bedtime is 11:00 p.m. to midnight, wakes up at 6:30 a.m.. He has nocturia once per night, is able to return to sleep. He snores less using his oral appliance. He has an gaurav on his phone that shows that his snoring has improved. His sleeps in a separate room due to the snoring. He does not have morning headaches. He does feel tired in the day. His weight is up 50 lb over the last 7 years. He does not take planned naps. Habits: Tobacco: Former smoker, now nicotine pouches during the day which helps him with focus Caffeine: He drinks soda. Alcohol: A few drinks per month. Recreational substances: none PMFSH Past Medical History Medical History Obesity Family history of ulcerative colitis Hyperlipidemia Family History Family History Sibling Family history of ulcerative colitis Social History Social History Social History: Smoking status: Former smoker Tobacco type: smokeless tobacco Smokeless tobacco user: chewing tobacco Second hand tobacco smoke exposure: No Alcohol intake: former Drinks per week: 1 Substance use: never Substance use type: does not use Do You Feel Safe in your Home?: Yes Lack of Transportation: No Lack of Food: Never True Current Housing: I Have Housing Concerned About Future Housing: No Difficulty Paying Gas/Electric Bills: No Difficulty Paying for Meds: No Currently Unemployed: No Education: Don't Know Difficulty w/ Childcare or Family Care: No Living arrangements: with family Occupation/Education: occupation Additional occupation/education comments: Agency [employer] Gender identity (if verbalized by the patient): Male Sexual Orientation (if Verbalized by the Patient): Straight or Heterosexual Spiritual care concerns: No Medications Home Medications ?Medication ?Instructions ?Recorded ?Confirmed ?Type ascorbic acid 1,000 ea PO 11/13/24 11/13/24 History fi-qbvughgthulq-[id number] powder effervescent pack (Emergen-C) ibuprofen 200 mg capsule 200 mg PO Q6H PRN 11/13/24 11/13/24 History Sleep Procedure The sleep study was completed using [employer] BioPAT a technically adequate device with seven channels: peripheral arterial tone, actigraphy, body position, snore, respiratory movement, pulse oximetry, sleep staging, and heart rate. Prior to using the device, the patient received verbal and written instructions for its application and was provided with the help desk phone number for additional telephonic instruction with 24-hour availability of qualified personnel to answer questions. Sleep Architecture The total recording time is 7 hrs, 27 min. The total sleep time is 5 hrs, 46 min. Sleep latency is 23 minutes. REM latency is 108 minutes. The patient had 22 episodes of waking. Sleep architecture shows 33.6% deep sleep, 44.9% light sleep, and 21.5% stage REM. The patient spent 4.3% of total sleep time in the supine position. Sleep efficiency was 77%. Respiratory Analysis The overall AHI (pAHI 3%:) is 14.7. The central AHI is 0.9. The AHI was 13.5 in NREM and 18.8 in REM sleep. The AHI was 107.2 in Supine and 10.5 in Non-supine sleep. Percent of Urbano Ulrich respirations is 0%. Oximetry Data The oxygen desaturation index (ROSE 4%:) is 6.9. The mean saturation is 95%, and the lowest saturation is 85%. Time spent with saturation < 88% is 0.4 minutes. Snoring Profile Snoring average intensity is 44 dB. The patient snored above 45 decibels for 113.2 minutes, 32.6% of sleep time. Cardiac Profile The average pulse rate is 67 beats per minutes. The lowest pulse rate is 50 bpm. The highest pulse rate is 103 beats per minute. Cardiac Rhythm Analysis in Sleep does not show suspected atrial fibrillation. Assessment and Plan Assessment and Plan (1) DE (obstructive sleep apnea): Code(s): G47.33 - Obstructive sleep apnea (adult) (pediatric) Status: Acute Assessment and Plan: This home sleep test using WatchPat on 02/02/2025 shows an apnea-hypopnea index of 14.7 using a 3% criteria, desaturation 85% and moderate snoring. He snored with an intensity above 45 decibels for 113 minutes, 32.6% of the night. He had tachycardia at 103 beats per minute. He did not have evidence of atrial fibrillation. This patient has had difficulty tolerating PAP in 2020. He is now using an oral appliance however has problems with jaw discomfort after using it for several nights. This patient would benefit from a CPAP titration in the sleep lab with a sleep aid available, if needed, to initiate and maintain sleep. He should not take a nap on the day of the study. The sleep aid to consider should be Ambien 5 mg to 10 mg or Lunesta 2 mg to 3 mg, to be taken at the sleep lab, not at home. He may be a candidate for an oral device fitted by a Sleep Dentist if he cannot tolerate CPAP. BMI is 40. Weight management is advised. Clinical data suggests that weight loss of 10% can reduce the severity of respiratory events and snoring and improve AHI by as much as 25%. Data The data obtained during this sleep study is adequate for interpretation. Certification This sleep study has been reviewed by a board certified sleep medicine physician.
[2025-02-12 21:12] VITALS: BMI 40.6
== END 2025-02-03 10:22 | disposition home or self-care (01) ==
PROVIDERS: PCP Family Medicine; Visit Provider Physician Assistant
DX: G47.33 Obstructive sleep apnea (adult) (pediatric) (principal)
CPT/HCPCS: 95800

== ENCOUNTER 2025-05-06 15:49 | Emergency (ER) | payer OTHER, SELFPAY ==
--- OUTSIDE RECORDS SUMMARY | 2025-05-06 15:52 | XMS_ITS | Clinical Summary ---
Author Organization [facility] al Address [address] [place] [address] Care Team Providers Care Screen Printing Machine Operator Name Role Phone Naif Bangura MD Primary [...] Regular Well Visit/Exam 18-64 2003 Influenza Vaccine (Season Ended) 2025 DTaP/Tdap/Td Vaccine (8 - Td or Tdap) 10/20/2031 10/20/2021, 10/19/2018, 05/04/1999, Additional history exists Hepatitis B Screening Completed 06/27/1999 , 02/19/1999, 10/13/1998 HPV Vaccines Aged Out No longer eligi ble based on patient's age to complete this topic Pneumococcal vaccine <65 Aged Out No longer eligible based on patient's age to complete this topic Insurance [facility]US [facility] PL[facility] Care Teams Screen Printing Machine Operator Relationship Specialty Start Date End Date Naif Bangura MD [address] [address] PCP - General Family Medicine 07/08/24
--- OUTSIDE RECORDS SUMMARY | 2025-05-06 15:52 | XMS_ITS | Clinical Summary ---
Author Organization [facility] Address [address] [place] [address] Care Team Providers Care Salvage Inspector Name Role Phone Naif Bangura MD Primary Care Provider [phone] Source Comments [facility],non-owned Affiliates and Associated Physician Practices is amultiple site organization consisting of ambulatory clinics and hospital sitesin [place], [place], [place] and [place]. This disclosure is being madepursuant to the Care Everywhere program and may not contain all information available regarding this patient. Last updated 18.[facility] [employer] [facility] Social History Tobacco Use Types Packs/Day Years Used Date Smoking Tobacco: Never Assessed Sex and Gender Information Value Date Recorded Sex Assigned at Not on file Legal Sex Male 9:57 AM CDT Gender Identity Not on file Sexual Orientation Not on file Plan of Treatment Health Maintenance Due Date Last Done Comments HIV SCREENING 2000 HEPATITIS C SCREENING 09/30/2003 DTAP/TDAP/TD VACCINES (1 - Tdap) 2004 HEPATITIS B VACCINE (1 of 3 - 19+ 3-dose series) 2004 COVID-19 VACCINE (2023-2 5 season) 2024 DEPRESSION SCREENING 11/18/2024 INFLUENZA VACCINE (Season Ended) 2025 ZOSTER VACCINE (1 of 2) 2035 HIB [...] patient's age to complete this topic Insurance [facility] Care Teams Salvage Inspector Relationship Specialty Start Date End Date Naif Bangura MD [address] [place] [address] PCP - General 01/27/19
--- OUTSIDE RECORDS SUMMARY | 2025-05-06 15:52 | XMS_ITS | Referral Summary ---
Author Organization [facility] al Address [address] [place] [address] Care Team Providers Care Gas Distribution Plant Operator Name Role Phone Naif Bangura MD [...] Plan of Treatment Not on file Insurance [facility]O Address: [place] [address] [facility] Address: [place] [address] Care Teams Gas Distribution Plant Operator Relationship Specialty Start Date End Date Naif Bangura MD [address] [facility] [address] [place] [address] PCP - General Family Medicine 07/08/24
--- NOTE | 2025-05-06 15:55 | ED_ITS ---
HPI - URI/Sore Throat General Chief Complaint: Upper Respiratory Infection Stated Complaint: Sinus Infection Source: patient and RN notes reviewed Mode of arrival: ambulatory Limitations: no limitations History of Present Illness HPI Narrative: 39-year-old male presented for complaint of left eye itching, redness and tenderness. Onset 2 days. Also reports metallic taste and more boogers than normal. Pt reports restarting the use of cpap machine 3 weeks ago. Says he cleans the tubing and mask. No meds for symptoms. Denies nasal congestion or drainage, sore throat, cough, or sinus pressure. Denies vision changes or photophobia. MD elicited complaint: cough Related Data Allergies Allergy/AdvReac Type Severity Reaction Status Date / Time No Known Allergies Allergy Verified 05/06/25 15:52 Review of Systems Review of Systems: CONSTITUTIONAL: denies malaise, body aches, chills, sweats, fever EYES: Denies visual changes, redness, or discharge ENT: denies rhinorrhea, congestion, sinus pain, otalgia, sore throat CARDIOVASCULAR: Denies chest pain, palpitations, edema RESPIRATORY: Denies dyspnea cough, post nasal drainage. GASTROINTESTINAL: Denies abdominal pain, nausea, vomiting, diarrhea SKIN: Denies rash or itching NEUROLOGIC: Denies headache PMFSH Past Medical History Medical History Obesity Family history of ulcerative colitis Hyperlipidemia Family History Family History Sibling Family history of ulcerative colitis Social History Social History Social History: Smoking status: Former smoker Tobacco type: smokeless tobacco Smokeless tobacco user: chewing tobacco Second hand tobacco smoke exposure: No Alcohol intake: former Drinks per week: 1 Substance use: never Substance use type: does not use Do You Feel Safe in your Home?: Yes Lack of Transportation: No Lack of Food: Never True Current Housing: I Have Housing Concerned About Future Housing: No Difficulty Paying Gas/Electric Bills: No Difficulty Paying for Meds: No Currently Unemployed: No Education: Don't Know Difficulty w/ Childcare or Family Care: No Living arrangements: with family Occupation/Education: occupation Additional occupation/education comments: [employer] Gender identity (if verbalized by the patient): Male Sexual Orientation (if Verbalized by the Patient): Straight or Heterosexual Spiritual care concerns: No Exam Narrative: GENERAL: well-appearing, nontoxic no acute distress. EYES: right conjunctivae clear; Left conjunctival injection, left lower medial lid with redness, swelling and tenderness c/w stye. PERRLA, EOMI. No FB. ENT: Mucous membranes moist.No sinus tenderness. TMs pearly lynn with dull light reflex bilaterally; no tragal tenderness. Oropharynx not erythematous without lesions or exudate, no drooling, no hoarseness, no trismus, uvula midline. No tripod positioning, muffled voice, soft palate or pharyngeal wall bulging NECK: Supple. No lymphadenopathy CHEST: Clear to auscultation, breath sounds equal. No wheezing, rhonchi, rales, or stridor. No respiratory distress, speaks in full sentences. HEART: Regular rate and rhythm. No murmur heard. SKIN: Warm, dry, no rash. NEURO: Alert and oriented x3. PSYCH: Normal mood and affect Course Course Emergency Course: Patient is aware of diagnosis, understands and agrees to treatment plan. Anticipatory guidance given. Patient agrees to follow-up as directed and is aware of reasons to seek care at the emergency department. Portions of this record may have been created with voice recognition software Level of Care: Express Care Visit Vital Signs Vital signs: reviewed MDM - URI/Sore Throat MDM Narrative Medical decision making narrative: Discussed physical exam findings c/w internal hordeolum and conjunctivitis. Pt will try otc meds for sinus and f/u prn. Advised supportive measures and signs/symptoms to go to the ER. Pt is appropriate for outpt treatment and f/u. Differential Diagnosis Differential diagnosis: Likely upper respiratory infection, sinusitis and viral infection Discharge Plan Discharge Clinical Impression: Conjunctivitis, Internal hordeolum of left eye Patient Disposition: Home Condition: Stable Instructions: Antibiotic Form, Stye (ED), Conjunctivitis (ED) Additional Instructions: Recommend Saline spray, Flonase spray and Zyrtec (or Claritin/Irene) Avoid touching or rubbing your eye. Use over the counter lubricating eye drops as needed for irritation Use a warm or cool washcloth on your eye for comfort Use eyedrops as directed - you are contagious for 24 hours after starting the antibiotic Practice good handwashing and hygiene to prevent spread of infection Do not wear the contact lenses. Use a new pair after the infection is resolved. Go to the emergency room if you have severe pain or pressure behind your eye, difficulty seeing, or other severe symptoms Apply warm, moist compresses on the left eye frequently (for 5 to 10 minutes three to five times per day) in order to help with drainage. Massage and gentle wiping of the affected eyelid after the warm compress can also help with drainage. You can use baby shampoo to wash the eye area Avoid wearing eye makeup or contact lenses Take medication as directed. If the lesion does not improve within one week, please follow up with an contracts specialist Patient Language: Barbadian Prescriptions: New polymyxin B sulf-trimethoprim 10,000 unit- 1 mg/mL drops 1 drp LEFT EYE Q3H 7 Days Qty: 10 0RF Rx Instructions: while awake; do not exceed 6 doses in 24 hours Follow-up/Referrals: Naif Bangura MD [Primary Care Provider] -
[2025-05-06 15:57] VITALS: BP 124/79; PULSE 79; RESP 18; TEMP 36.4; O2SAT 98
== END 2025-05-06 16:22 | disposition home or self-care (01) ==
PROVIDERS: Emergency Provider Nurse Practitioner Family; PCP Family Medicine
DX: H10.9 Unspecified conjunctivitis (principal); H00.025 Hordeolum internum left lower eyelid; E78.5 Hyperlipidemia, unspecified; E66.9 Obesity, unspecified; Z68.41 Body mass index [BMI] 40.0-44.9, adult; Z87.891 Personal history of nicotine dependence
CPT/HCPCS: 99213; G0463